=== PATIENT | female | born 1965 | race African-American/Black ===

== ENCOUNTER 2022-06-09 09:38 | Emergency (ER) | payer OTHER ==
[~2022-06-09] VITALS: Ht 167.6 cm; Wt 84.1 kg
[2022-06-09] MEDS ORDERED: IBUP-1492 PO (14:03)
[2022-06-09 14:15] VITALS: BP 143/74
== END 2022-06-09 14:45 | disposition home or self-care (01) ==
LOC: EMS 09:42
DX: M25.561 Pain in right knee (principal); S80.01XA Contusion of right knee, initial encounter; W01.0XXA Fall on same level from slipping, tripping and stumbling without subsequent striking against object, initial encounter; Y93.89 Activity, other specified; Y92.89 Other specified places as the place of occurrence of the external cause; Y99.8 Other external cause status
CPT/HCPCS: 99283